=== PATIENT | male | born 1940 | race Caucasian/White ===

== ENCOUNTER → 2016-07-22 | Outpatient (REF) | payer MEDICARE, BC ==
[2016-07-22 12:19] LABS: ALBUMIN 3.7 GM/DL (3.2-5.2); ALBUMIN/GLOBULIN RATIO 1.12 (1.00-1.93); ALKALINE PHOSPHATASE 74 U/L (45-117); ALT/SGPT 20 U/L (12-78); ANION GAP 6 MEQ/L (8-16); AST/SGOT 20 U/L (15-37); BILIRUBIN,TOTAL 0.6 MG/DL (0.2-1.0); BLOOD UREA NITROGEN 5 MG/DL (7-18); CALCIUM LEVEL 8.6 MG/DL (8.8-10.2); CARBON DIOXIDE LEVEL 31 MEQ/L (21-32); CHLORIDE LEVEL 97 MEQ/L (98-107); CHOLESTEROL LEVEL 133 MG/DL (<200); CREATININE FOR GFR 0.64 MG/DL (0.70-1.30); GLOMERULAR FILTRATION RATE > 60.0 (>42); GLUCOSE, FASTING 101 MG/DL (83-110); POTASSIUM SERUM 4.4 MEQ/L (3.5-5.1); SODIUM LEVEL 134 MEQ/L (136-145); TRIGLYCERIDES LEVEL 46 MG/DL (<150)
== END ==
LOC: M SFHCCLAY 08:33
PROVIDERS: ATTEND Family Medicine
DX: I10 Essential (primary) hypertension (principal); R97.20 Elevated prostate specific antigen [PSA]
CPT/HCPCS: 80053; 80061; 84443; G0103

== ENCOUNTER → 2016-08-14 | Outpatient (CLI) | payer MEDICARE, BC | LOC: M SMT 11:12 | PROVIDERS: ATTEND Nurse Practitioner Family | DX: R97.20 Elevated prostate specific antigen [PSA] (principal) ==

== ENCOUNTER → 2017-12-28 | Outpatient (REF) | payer MEDICARE, BC ==
[2017-12-28 17:52] LABS: PSA SCREENING 9.17 NG/ML (< 4.0)
== END ==
LOC: M SFHCCLAY 12:18
DX: R97.20 Elevated prostate specific antigen [PSA] (principal)
CPT/HCPCS: G0103

== ENCOUNTER → 2018-12-29 | Outpatient (REF) | payer MEDICARE, BC ==
[~2018-12-29] MED LIST: AMLO2.5C4 PO; AMLO5TAB6 PO; ASPI1TAB15 PO; ATOR1TAB21 PO; BISO2.5T PO; CLOP75TA2 PO; CYAN100049 PO; PRESCAP6 PO; TYLE500T78 PO; VITA100066 PO; VITA400C7 PO; VITA500T PO; VITMTA PO; ZIAC2.5T PO
[2018-12-29 15:43] LABS: BASO % 0.3 % (0.0-1.0); EOS # 0.4 10^3/uL (0.0-0.5); EOS % 4.2 % (0.0-3.0); HEMATOCRIT 39.6 % (42.0-52.0); HEMOGLOBIN 13.3 g/dl (13.5-17.5); LYMPH # 1.6 10^3/uL (1.5-5.0); LYMPH % 18.1 % (24.0-44.0); MEAN CORPUSCULAR HEMOGLOBIN 30.7 pg (27.0-33.0); MEAN CORPUSCULAR HGB CONC 33.6 g/dl (32.0-36.5); MEAN CORPUSCULAR VOLUME 91.5 fl (80.0-96.0); MONO # 1.1 10^3/uL (0.0-0.8); MONO % 12.6 % (0.0-5.0); NEUTROPHILS # 5.7 10^3/uL (1.5-8.5); NEUTROPHILS % 64.5 % (36.0-66.0); PLATELET COUNT, AUTOMATED 267 10^3/uL (150-450); RED BLOOD COUNT 4.33 10^6/uL (4.30-6.10); WHITE BLOOD COUNT 8.8 10^3/uL (4.0-10.0)
[2018-12-29 16:02] LABS: ALBUMIN 3.8 GM/DL (3.2-5.2); ALT/SGPT 19 U/L (12-78); BILIRUBIN,TOTAL 0.8 MG/DL (0.2-1.0); BLOOD UREA NITROGEN 8 MG/DL (7-18); CALCIUM LEVEL 8.8 MG/DL (8.8-10.2); CARBON DIOXIDE LEVEL 28 MEQ/L (21-32); CHLORIDE LEVEL 97 MEQ/L (98-107); CREATININE FOR GFR 0.57 MG/DL (0.70-1.30); GLOMERULAR FILTRATION RATE > 60.0 (>42); GLUCOSE, FASTING 84 MG/DL (70-100); POTASSIUM SERUM 4.1 MEQ/L (3.5-5.1); SODIUM LEVEL 134 MEQ/L (136-145); TOTAL PROTEIN 6.9 GM/DL (6.4-8.2)
[2018-12-29 16:10] LABS: FOLATE 23.1 NG/ML (>5.4); VITAMIN B12 LEVEL 1203 PG/ML (247-911)
[2019-01-05 00:07] LABS: VITAMIN B1 LEVEL WHOLE BLOOD 144.3 nmol/L (66.5-200.0); VITAMIN B6,PYRIDOXAL PHOSPHATE 41.3 ug/L (5.3-46.7); VITAMIN E(ALPHA TOCOPHEROL) 16.2 mg/L (9.0-29.0); VITAMIN E(GAMMA TOCOPHEROL) 0.1 mg/L (0.5-4.9)
== END ==
LOC: M LABNEURO 14:32
PROVIDERS: ATTEND Psychiatry & Neurology Neurology
DX: I63.9 Cerebral infarction, unspecified (principal); R41.3 Other amnesia; D51.9 Vitamin B12 deficiency anemia, unspecified; E51.9 Thiamine deficiency, unspecified

== ENCOUNTER → 2019-09-21 | Outpatient (REF) | payer MEDICARE, BC ==
[~2019-09-21] MED LIST changes: +AMLO1TAB24 PO; -AMLO5TAB6 PO; +ASPI-546 PO; -ASPI1TAB15 PO; +ASPI81CH33 PO; +CLOP75TA2; +D31000TA2 PO; +DONETAB5 PO; +FERR325T81 PO; +MULTCAP PO; +OCUVTAB4 PO; +PAXI20TA29 PO; +VITA-243 PO; +VITA100020 PO; -VITA500T PO
[2019-09-21 17:01] LABS: HEMATOCRIT 25.8 % (42.0-52.0); HEMOGLOBIN 7.4 g/dl (13.5-17.5); MEAN CORPUSCULAR HEMOGLOBIN 20.7 pg (27.0-33.0); MEAN CORPUSCULAR HGB CONC 28.7 g/dl (32.0-36.5); MEAN CORPUSCULAR VOLUME 72.1 fl (80.0-96.0); PLATELET COUNT, AUTOMATED 349 10^3/uL (150-450); RED BLOOD COUNT 3.58 10^6/uL (4.30-6.10); WHITE BLOOD COUNT 8.1 10^3/uL (4.0-10.0)
== END ==
LOC: M SFHCCLAY 09:29
PROVIDERS: ATTEND Family Medicine
DX: R97.20 Elevated prostate specific antigen [PSA] (principal); R73.01 Impaired fasting glucose; D64.9 Anemia, unspecified
CPT/HCPCS: 83036; 85027; 90732; G0009; G0103; G0463

== ENCOUNTER → 2019-10-20 | Outpatient (REF) | payer MEDICARE, BC ==
[2019-11-19 03:04] LABS: HEMATOCRIT 29.5 % (42.0-52.0); HEMOGLOBIN 8.7 g/dl (13.5-17.5); MEAN CORPUSCULAR HGB CONC 29.5 g/dl (32.0-36.5); MEAN CORPUSCULAR VOLUME 77.8 fl (80.0-96.0); PLATELET COUNT, AUTOMATED 236 10^3/uL (150-450); RED BLOOD COUNT 3.79 10^6/uL (4.30-6.10); WHITE BLOOD COUNT 7.3 10^3/uL (4.0-10.0)
[2019-12-08 10:00] LABS: PERCENT SATURATION 4.1 % (19.7-50.0)
== END ==
LOC: M SFHCCLAY 13:25
PROVIDERS: ATTEND Family Medicine
DX: D64.9 Anemia, unspecified (principal)
CPT/HCPCS: 36415; 83550; 85027; G0463

== ENCOUNTER → 2019-10-25 | Outpatient (REF) | payer MEDICARE, BC | LOC: M SFHCCLAY 08:24 | PROVIDERS: ATTEND Family Medicine | DX: D64.89 Other specified anemias (principal); Z86.718 Personal history of other venous thrombosis and embolism ==

== ENCOUNTER → 2019-12-21 | Outpatient (CLI) | payer MEDICARE, BC | LOC: M LABSMTC 11:51 | PROVIDERS: ATTEND Anesthesiology | DX: Z01.812 Encounter for preprocedural laboratory examination (principal); Z20.828 Contact with and (suspected) exposure to other viral communicable diseases | CPT/HCPCS: C9803; U0003 ==

== ENCOUNTER 2019-12-26 07:30 | Day surgery (SDC) | payer MEDICARE, BC ==
[~2019-12-26] VITALS: Ht 180.3 cm; Wt 78.0 kg
[~2019-12-26 07:30] MED LIST changes: +NS 1,000 ML IV ONE
[2019-12-26] MEDS ORDERED: LIDOCAINE 2% 100MG/5ML SDV (FOR ANES.) As Ordered ONE (08:06)
[2019-12-26] MEDS ORDERED: propofoL 200 MG/20 ML VIAL As Ordered ONE ×2 (08:06→08:57)
--- NOTE | 2019-12-26 08:37 | ROOR ---
Patient Name: Ramesh Locke Procedure Date: 12/26/2019 8:15 AM Date of : 1940 Age: 79 Room: [facility] Gender: Male Note Status: Finalized Procedure: Upper Endoscopy + Biopsies Indications: Iron deficiency anemia, Unexplained iron deficiency anemia Providers: Fredy Wright MD Referring MD: Aaliyah BOWERS DO, Mohsin Ali, MD Requesting Provider: Medicines: Monitored Anesthesia Care Complications: No immediate complications. Procedure: Pre-Anesthesia Assessment: - The heart rate, respiratory rate, oxygen saturations, blood pressure, adequacy of pulmonary ventilation, and response to care were monitored throughout the procedure. The Endoscope was introduced through the mouth, and advanced to the second part of duodenum. The upper GI endoscopy was accomplished without difficulty. The patient tolerated the procedure well. Findings: The Z-line was irregular and was found 35 cm from the incisors. Multiple biopsies were obtained with cold forceps for evaluation to rule out Sim's Esophagus randomly at the gastroesophageal junction. A medium-sized hiatal hernia was present. Localized mild inflammation characterized by congestion (edema), erosions and erythema was found in the gastric antrum. Biopsies were taken with a cold forceps for Helicobacter pylori testing. Multiple localized erosions without bleeding were found in the duodenal bulb. Biopsies for histology were taken with a cold forceps for evaluation of celiac disease. The exam was otherwise without abnormality. Impression: - Z-line irregular, 35 cm from the incisors. - Medium-sized hiatal hernia. - Mucosal changes suspicious for gastritis. Biopsied. - Duodenal erosions without bleeding. Biopsied. - The examination was otherwise normal. - Multiple biopsies were obtained at the gastroesophageal junction. - The examination was otherwise normal. Recommendation: - Patient has a contact number available for emergencies. The signs and symptoms of potential delayed complications were discussed with the patient. Return to normal activities tomorrow. Written discharge instructions were provided to the patient. - High fiber diet. - Discharge patient to home. - Follow an antireflux regimen. - Continue present medications. - Await pathology results. - Telephone GI clinic for pathology results in 1 week. - Resume antiplatelet medication at prior dose today. - The findings and recommendations were discussed with the patient. Fredy Wright MD Fredy Wright MD 12/26/2019 8:36:41 AM Electronically signed by Fredy Wright MD Number of Addenda: 0 Note Initiated On: 12/26/2019 8:15 AM Estimated Blood Loss: Estimated blood loss: none.
--- NOTE | 2019-12-26 08:58 | ROOR ---
Patient Name: Ramesh Locke Procedure Date: 12/26/2019 8:16 AM Date of : 1940 Age: 79 Room: [facility] Gender: Male Note Status: Finalized Procedure: Total Colonoscopy to Cecum + Cold Snare Polypectomy + Hemoclips Indications: Unexplained iron deficiency anemia Providers: Fredy Wright MD Referring MD: Aaliyah BOWERS DO, Nikhil Prieto MD Requesting Provider: Medicines: Monitored Anesthesia Care Complications: No immediate complications. Procedure: Pre-Anesthesia Assessment: - The heart rate, respiratory rate, oxygen saturations, blood pressure, adequacy of pulmonary ventilation, and response to care were monitored throughout the procedure. The Colonoscope was introduced through the anus and advanced to the cecum, identified by appendiceal orifice and ileocecal valve. The colonoscopy was performed without difficulty. The patient tolerated the procedure well. The quality of the bowel preparation was good. Findings: The perianal and digital rectal examinations were normal. Non-bleeding internal hemorrhoids were found during retroflexion. The hemorrhoids were small and Grade I (internal hemorrhoids that do not prolapse). Multiple small and large-mouthed diverticula were found in the recto-sigmoid colon, sigmoid colon and descending colon. A small polyp was found at 30 cm proximal to the anus. The polyp was sessile. The polyp was removed with a cold snare. Resection and retrieval were complete. To prevent bleeding after the polypectomy, one hemostatic clip was successfully placed (MR conditional). There was no bleeding at the end of the procedure. The exam was otherwise without abnormality on direct and retroflexion views. One small angioectasia without bleeding was found in the cecum. Impression: - Non-bleeding internal hemorrhoids. - Diverticulosis in the recto-sigmoid colon, in the sigmoid colon and in the descending colon. - One small polyp at 30 cm proximal to the anus, removed with a cold snare. Resected and retrieved. Clip (MR conditional) was placed. - The examination was otherwise normal on direct and retroflexion views. - One non-bleeding colonic angioectasia. - The exam was otherwise normal to the cecum. Recommendation: - Patient has a contact number available for emergencies. The signs and symptoms of potential delayed complications were discussed with the patient. Return to normal activities tomorrow. Written discharge instructions were provided to the patient. - High fiber diet. - Discharge patient to home. - Resume aspirin at prior dose today. - Await pathology results. - Telephone GI clinic for pathology results in 1 week. - Repeat colonoscopy is not recommended for surveillance. - Return to referring physician. - The findings and recommendations were discussed with the patient. Fredy Wright MD Fredy Wright MD 12/26/2019 8:57:04 AM Electronically signed by Fredy Wright MD Number of Addenda: 0 Note Initiated On: 12/26/2019 8:16 AM Estimated Blood Loss: Estimated blood loss: none.
[2019-12-26 09:25] VITALS: BP 145/82
== END 2019-12-26 09:34 | disposition home or self-care (01) ==
LOC: M OPP 07:30
PROVIDERS: ATTEND Internal Medicine Gastroenterology
DX: D50.9 Iron deficiency anemia, unspecified (principal); K63.5 Polyp of colon; K64.0 First degree hemorrhoids; K57.30 Diverticulosis of large intestine without perforation or abscess without bleeding; D13.0 Benign neoplasm of esophagus; D13.1 Benign neoplasm of stomach; D13.30 Benign neoplasm of unspecified part of small intestine; K22.8 Other specified diseases of esophagus; K44.9 Diaphragmatic hernia without obstruction or gangrene; K31.89 Other diseases of stomach and duodenum; K26.9 Duodenal ulcer, unspecified as acute or chronic, without hemorrhage or perforation; I10 Essential (primary) hypertension; E78.5 Hyperlipidemia, unspecified; Z86.73 Personal history of transient ischemic attack (TIA), and cerebral infarction without residual deficits; Z79.899 Other long term (current) drug therapy

== ENCOUNTER → 2020-08-14 | Outpatient (REF) | payer MEDICARE, BC ==
[~2020-08-14] MED LIST changes: +B-12100010 PO; +MULT-90 PO; -NS 1,000 ML IV ONE; +VITAE40CA PO
[2020-08-14 17:22] LABS: BLOOD UREA NITROGEN 10 MG/DL (7-18); CALCIUM LEVEL 9.3 MG/DL (8.8-10.2); CARBON DIOXIDE LEVEL 30 MEQ/L (21-32); CHLORIDE LEVEL 99 MEQ/L (98-107); CHOLESTEROL LEVEL 135 MG/DL (<200); CHOLESTEROL RISK RATIO 2.045 (<5); CREATININE FOR GFR 0.59 MG/DL (0.70-1.30); GLOMERULAR FILTRATION RATE > 60.0 (>35); GLUCOSE, FASTING 89 MG/DL (70-100); HDL CHOLESTEROL 66 MG/DL (>40); LDL CHOLESTEROL 61 MG/DL (<100); NON-HDL-C 69 MG/DL; POTASSIUM SERUM 4.8 MEQ/L (3.5-5.1); SODIUM LEVEL 136 MEQ/L (136-145); TRIGLYCERIDES LEVEL 41 MG/DL (<150)
[2020-08-14 17:41] LABS: HEMOGLOBIN A1c 5.1 %
== END ==
LOC: M SFHCCLAY 10:32
PROVIDERS: ATTEND Family Medicine
DX: R73.01 Impaired fasting glucose (principal); I11.9 Hypertensive heart disease without heart failure; I63.532 Cerebral infarction due to unspecified occlusion or stenosis of left posterior cerebral artery; R97.20 Elevated prostate specific antigen [PSA]
CPT/HCPCS: 80048; 80061; 83036; G0103; G0442; G0444

== ENCOUNTER → 2020-10-16 | Outpatient (CLI) | payer MEDICARE, BC ==
[~2020-10-16] MED LIST changes: +PROHANCE 279.3MG/ML 15ML VIAL As Ordered ONE; +PROHANCE 279.3MG/ML 5ML VIAL As Ordered ONE
--- NOTE | 2020-10-17 09:32 | REP ---
INDICATION: PROSTATE CA STAGING. COMPARISON: No comparison imaging. TECHNIQUE: Using a phased array surface coil, small ldbgg-ow-[id number] imaging was acquired using T2 weighted scans in the axial, coronal, and sagittal imaging planes. Small buuhx-ge-ctxx diffusion-weighted sequences are acquired. Small nijbj-eo-vjys axial T1 weighted scans are acquired dynamically before and after the intravenous administration of 16 mL of ProHance. Imaging is reviewed using the [employer] computer-aided detection system. FINDINGS: Pre and postcontrast enhanced MR imaging shows no evidence of skeletal metastatic disease or Paula pelvic or pelvic lymphadenopathy. There is no evidence to suggest extraprostatic malignancy. The prostate gland is enlarged with dimensions of 5.5 x 4.6 x 5.1 cm, calculated volume 59.7 mL. There is nodular enlargement of the central gland consistent with benign prostatic hypertrophy. The bladder mullen are diffusely trabeculated and slightly thickened. Seminal vesicles are unremarkable. There is no highly suspicious area of decreased T2 signal intensity in the peripheral zone. Two nodular foci of T2 hyperintensity are identified in the right central gland, 1 in the apex and the other at mid gland level. The apical T2 hyperintense nodule shows a type 3 contrast enhancement curve and some reduction in ADC on diffusion-weighted scans. This is of intermediate suspicion. The mid gland nodule does not show diffusion weighted signal abnormality and demonstrates type 2 enhancement. This is less suspicious. These 2 foci are processed into the [employer] computer system. IMPRESSION: Evidence of benign prostatic hypertrophy and prostate enlargement. Trabeculated bladder mullen. No evidence of adenopathy or skeletal disease. Paula prostatic soft tissues are unremarkable. <Electronically signed by Juanjose Silveira > 10/17/20 1436
== END ==
LOC: M RAD 14:28
PROVIDERS: ATTEND Internal Medicine Hematology & Oncology
DX: C61 Malignant neoplasm of prostate (principal)
CPT/HCPCS: 72197; A9576

== ENCOUNTER → 2020-11-20 | Outpatient (CLI) | payer MEDICARE, BC ==
[~2020-11-20] MED LIST changes: +ACET-683 PO; -AMLO2.5C4 PO; +AMLO2.5C6 PO; +COVI2.5V IM; +DONE5TAB86 PO; -DONETAB5 PO; -PROHANCE 279.3MG/ML 15ML VIAL As Ordered ONE; -PROHANCE 279.3MG/ML 5ML VIAL As Ordered ONE
== END ==
LOC: M RAD 14:12
PROVIDERS: ATTEND Internal Medicine Gastroenterology
DX: T18.4XXA Foreign body in colon, initial encounter (principal); T18.3XXA Foreign body in small intestine, initial encounter